=== PATIENT | female | born 1995 | race Two or more races ===

== ENCOUNTER 2018-10-16 18:21 | Emergency (ER) | payer MEDICAID ==
[~2018-10-16] VITALS: Ht 167.6 cm; Wt 58.5 kg
[2018-10-16 18:26] VITALS: BP 151/84
[2018-10-16] MEDS ORDERED: NKM (18:29)
[2018-10-16] MEDS ORDERED: PROMETHAZINE-C118 M1 ORAL (18:54)
[2018-10-16] MEDS ORDERED: TYLENOL EXTRA500 MG ORAL (18:54)
--- NOTE | 2018-10-16 18:54 | Emergency Room Report ---
History of Present Illness General Chief Complaint: Flu Like Symptoms Source: Patient Present Illness HPI 23-year-old female patient presents the ER complaining of cough for the past 4 days. Reports cough with sputum. Denies hemoptysis. Denies shortness of breath. Denies history of heart disease or asthma. Denies difficulty breathing. Reports reproducible chest pain with cough. Denies history of chest pain in the past. Denies recent travel. Denies smoking cigarettes or marijuana however states that the person she is dating smokes near her. Denies calf pain. Denies recent travel outside the country. States not taking medication for relief of symptoms. Denies other aggravating or relieving factors. States cough is worse at night. Denies fever, sore throat, earache. States that she has difficulty swallowing pills and is requesting liquid medication. Denies hx of asthma or heart disease. Allergies: Coded Allergies: No Known Allergies (Unverified , 10/16/18) Patient History Past Medical History: see triage record Last Menstrual Period: 3 WEEKS AGO Reviewed Nursing Documentation: PMH: Agreed; PSxH: Agreed Nursing Documentation-PMH Past Medical History: No Stated History Review of Systems All Other Systems: negative except mentioned in HPI Physical Exam Vital Signs Date Time Temp Pulse Resp B/P (MAP) Pulse Ox O2 Delivery O2 Flow Rate FiO2 10/16/18 18:26 98.2 100 22 151/84 96 Room Air Sp02 EP Interpretation: reviewed, normal General Appearance: well appearing, no apparent distress, alert, GCS 15, non- toxic Head: normocephalic, atraumatic Eyes: bilateral eye normal inspection, bilateral eye PERRL ENT: hearing grossly normal, normal pharynx, no angioedema, normal voice, TMs + canals normal, uvula midline, moist mucus membranes Neck: full range of motion, no meningismus, no bony tend Respiratory: lungs clear, normal breath sounds, no rhonchi, no respiratory distress, no accessory muscle use, no wheezing, speaking full sentences Cardiovascular #1: regular rate, rhythm, no edema Neurologic: alert, oriented x3, responsive, motor strength/tone normal, sensory intact Psychiatric: mood/affect normal Skin: no rash Lymphatic: no adenopathy Medical Decision Making PA Attestation Dr. Mohan is my supervising Physician whom patient management has been discussed with. Diagnostic Impression: Primary Impression: Cough ER Course Pt presents to ED c/o cough. DDX considered but are not limited to influenza, viral URI, pneumonia, strep throat, rhinitis, sinusitis, otitis media, otitis externa, bronchitis, asthma VITAL SIGNS are WNL, patient is afebrile. ER COURSE: Lungs clear to auscultation, no wheezes, rhonci or rales. patient afebrile. Low suspicion for pneumonia, will not order CXR at this time. Offered xray, patient declined. no tonsillar exudates, no pharyngeal erythema, history of cough, no fever, no stridor, uvula midline, low suspicion for peritonsillar abscess. Likely viral etiology of symptoms. Symptomatic treatment. drink plenty of fluids. Salt water gargles for sore throat. Followup with PCP for further treatment and/or referral as needed. Cures reviewed. ER precautions given. DISCHARGE: At this time pt is stable for d/c to home. Patient is resting comfortably, in no acute distress, nontoxic appearing. Patient to take medications as instructed Will provide with patient care instructions and any necessary prescriptions. Care plan and follow-up instructions provided. Patient instructed to follow-up with primary care provider in 3 - 5 days. Patient questions asked and answered. Patient reports understanding and agreement to treatment plan. ER precautions given. Patient instructed to return to ER immediately for any new or worsening of symptoms including but not limited to increasing SOB, persistent fever, intractable vomiting. - Please note that this Emergency Department Report was dictated using [employer] technology software, occasionally this can lead to erroneous entry secondary to interpretation by the dictation equipment. Last Vital Signs Date Time Temp Pulse Resp B/P (MAP) Pulse Ox O2 Delivery O2 Flow Rate FiO2 10/16/18 18:26 98.2 100 22 151/84 96 Room Air Status: improved Disposition: HOME, SELF-CARE Condition: Stable Scripts Acetaminophen* (TYLENOL EXTRA STRENGTH*) 500 Mg Tablet 500 MG ORAL Q8H PRN for Prn Headache/Temp > 101, #30 TAB 0 Refills Prov: [email or web address] 10/16/18 Codeine/Promethazine Hcl* (PROMETHAZINE-CODEINE SYRUP*) 118 Ml Syrup 5 ML ORAL Q6H PRN for For Cough, #118 ML 0 Refills Prov: Vance [email or web address] 10/16/18 Patient Instructions: Cough, Adult, [id number] Additional Instructions: Followup with primary care provider in 3 -5 days. Take Tylenol Motrin if pain symptoms present. Avoid smoking. Take medications as directed. Do not take prior to drinking, driving, operating heavy machinery. Patient questions asked and answered. ER precautions given, patient instructed to return to ER immediately for any new or worsening of symptoms. Vance Cornejo Oct 16, 2018 18:54
[2018-10-16 19:00] VITALS: BP 145/78
--- NOTE | 2018-10-16 19:00 | NUR ---
ER DISCHARGE NOTE: Patient is cleared to be discharged per ERMD, pt is aox4, on room air, with stable vital signs. pt was given dc and prescription instructions, pt was able to verbalize understanding, pt id band removed. pt is able to ambulate with steady gait. pt took all belongings.
== END 2018-10-16 19:00 | disposition home or self-care (01) ==
LOC: EMR 18:52
DX: R05 Cough (principal); R07.9 Chest pain, unspecified
CPT/HCPCS: 99282

== ENCOUNTER 2018-10-20 18:16 | Emergency (ER) | payer MEDICAID ==
[~2018-10-20] VITALS: Ht 167.6 cm; Wt 58.5 kg
[~2018-10-20 18:16] MED LIST: NKM; PROMETHAZINE-C118 M1 ORAL; TYLENOL EXTRA500 MG ORAL
[2018-10-20 18:24] VITALS: BP 111/69
--- NOTE | 2018-10-20 19:17 | NUR ---
ED Nurse Note: Patient is here for refill for cough medicine. Patient has had cough for 1 week.
[2018-10-20] MEDS ORDERED: DM-GUAIF-PE 18240 ML PO (19:24)
--- NOTE | 2018-10-20 19:27 | Emergency Room Report ---
History of Present Illness General Chief Complaint: Medication Refill Source: Patient Present Illness HPI 23-year-old female presents to the emergency department complaining of persistent cough and needing refill of cough medication that she received 3 days ago from here in the emergency department. Patient states that was working very well however she has now run out of it. She states that her symptoms have been improving she is no longer coughing up mucus she denies fevers or chills. His chest pain or shortness of breath. no other modifying factors at this time. Allergies: Coded Allergies: No Known Allergies (Unverified , 10/16/18) Patient History Past Medical History: see triage record Past Surgical History: none Pertinent Family History: none Last Menstrual Period: 09/30/18 Now: No Immunizations: UTD Reviewed Nursing Documentation: PMH: Agreed; PSxH: Agreed Nursing Documentation-PMH Past Medical History: No Stated History Review of Systems All Other Systems: negative except mentioned in HPI Physical Exam Vital Signs Date Time Temp Pulse Resp B/P (MAP) Pulse Ox O2 Delivery O2 Flow Rate FiO2 10/20/18 18:24 98.1 16 111/69 98 Room Air 10/20/18 18:24 77 Sp02 EP Interpretation: reviewed, normal General Appearance: no apparent distress, alert, GCS 15, non-toxic Head: normocephalic, atraumatic Eyes: bilateral eye normal inspection, bilateral eye PERRL ENT: hearing grossly normal, normal voice Neck: full range of motion Respiratory: chest non-tender, lungs clear, normal breath sounds, no respiratory distress, no accessory muscle use, no wheezing, speaking full sentences Cardiovascular #1: regular rate, rhythm Musculoskeletal: back normal, gait/station normal, normal range of motion, non- tender Neurologic: alert, oriented x3, responsive, motor strength/tone normal, sensory intact, speech normal, grossly normal Psychiatric: judgement/insight normal Skin: normal color, no rash, warm/dry, well hydrated Lymphatic: no adenopathy Medical Decision Making PA Attestation Dr. coombs is my supervising Physician whom patient management has been discussed with. Diagnostic Impression: Primary Impression: Cough Additional Impressions: Patient requests medication, not given Request for narcotic pain medication ER Course 23-year-old female presents to the emergency department complaining of persistent cough and needing refill of cough medication that she received 3 days ago from here in the emergency department. Patient states that was working very well however she has now run out of it. She states that her symptoms have been improving she is no longer coughing up mucus she denies fevers or chills. His chest pain or shortness of breath. no other modifying factors at this time. Ddx considered but are not limited to: PNA, drug seeking, OD, urgent need for medication refill request, non -urgent medication refill request just to name a few. Vital signs: are WNL, pt. is afebrile H&PE are most consistent with non- urgent need for medication refill. D/W pt. regarding NON-COMPLIANCE with DIRECTIONS of MEDICATIONS.-- Discussed with this patient that she should not have been out of her cough syrup after only 4 days after further discussion it appears the patient has been taking the cough syrup not as prescribed she states she's been pouring it into a cup and just drinking it. ORDERS: none required at this time, the diagnosis is clinical ED INTERVENTIONS: None required at this time. DISCHARGE: At this time pt. is stable for d/c to home. Will provide printed patient care instructions, and any necessary prescriptions. Care plan and follow up instructions have been discussed with the patient prior to discharge. Last Vital Signs Date Time Temp Pulse Resp B/P (MAP) Pulse Ox O2 Delivery O2 Flow Rate FiO2 10/20/18 18:24 98.1 77 16 111/69 98 Room Air Disposition: HOME, SELF-CARE Condition: Stable Scripts Guaifen/Dextromethorphan/PE (Dm-Guaif-PE 18-200-10 mg/15 ml) 240 Ml Liquid 5 ML PO Q6HR, #240 ML Prov: Kimberlee Villalobos 10/20/18 Patient Instructions: Cough, Adult, [id number] Additional Instructions: Take medications as directed. Follow up with a Primary Care Provider in 3-5 days, even if your symptoms have resolved. --Please review list of primary care clinics, if you do not already have a primary care provider Return sooner to ED if new symptoms occur, or current symptoms become worse. - Please note that this Emergency Department Report was dictated using [employer] plant research technician technology software, occasionally this can lead to erroneous entry secondary to interpretation by the dictation equipment. Kimberlee Villalobos Oct 20, 2018 19:27
--- NOTE | 2018-10-20 19:34 | NUR ---
ED Nurse Note: Patient cleared for discharge, ambulatory with steady gait, ID band removed, patient verbalized understanding of discharge instructions. Patient discharged in stable condition.
[2018-10-20 19:37] VITALS: BP 111/69
== END 2018-10-20 19:37 | disposition home or self-care (01) ==
LOC: EMR 19:04
DX: Z76.0 Encounter for issue of repeat prescription (principal); R05 Cough
CPT/HCPCS: 99282